=== PATIENT | female | born 1945 | race Caucasian/White ===

== ENCOUNTER 2019-02-25 05:48 | Emergency (ER) | payer BC, MEDICARE ==
--- NOTE | 2019-02-25 06:03 | ERPHSYRPT ---
- History of Present Illness Time Seen by Provider: 02/25/19 05:57 Source: patient Exam Limitations: other (Poor Historian) Physician History: Was cold yessterday; aches all over; nausea this morning. Has infection R calf from attack by neighbors radha last week. Is on antibiotic 2 X day - name unknown and not sure why she is taking it (maybe because of the leg wound - saw PCP) Allergies/Adverse Reactions: No Known Drug Allergies Allergy (Unverified 02/25/16 15:58) Home Medications: Cetirizine HCl [Allergy] 1 tab PO DAILY 02/25/16 [History] Hx Tetanus, Diphtheria Vaccination/Date Given: No Hx Influenza Vaccination/Date Given: Yes Hx Pneumococcal Vaccination/Date Given: No - Review of Systems Constitutional: Chills, Malaise Eyes: No Symptoms Ears, Nose, & Throat: No Symptoms Respiratory: No Symptoms Cardiac: No Symptoms Abdominal/Gastrointestinal: Nausea, No Vomiting, No Diarrhea All Other Systems: Reviewed and Negative - Past Medical History Pertinent Past Medical History: Yes Neurological History: No Pertinent History Cardiac History: No Pertinent History Respiratory History: No Pertinent History History: No Pertinent History Female Reproductive Disorders: No Pertinent History Other Medical History: SEASONAL ALLERGIES - Past Surgical History Past Surgical History: No - Social History Smoking Status: Never smoker Exposure to second hand smoke: No Drug Use: none Patient Lives Alone: No - Nursing Vital Signs Nursing Vital Signs: Initial Vital Signs Temperature 98.0 F 02/25/19 05:54 Pulse Rate 73 02/25/19 05:54 Respiratory Rate 18 02/25/19 05:54 Blood Pressure 141/63 02/25/19 05:54 Pain Scale Pain Intensity 5 - Physical Exam General Appearance: no apparent distress Eye Exam: PERRL/EOMI, eyes nml inspection Ears, Nose, Throat Exam: normal ENT inspection, pharynx normal Neck Exam: normal inspection, non-tender, supple Respiratory Exam: normal breath sounds, lungs clear, airway intact Cardiovascular Exam: regular rate/rhythm, normal heart sounds, normal peripheral pulses, No edema, No pulse deficit Gastrointestinal/Abdomen Exam: soft, normal bowel sounds, No tenderness, No distention, No mass, No guarding, No rebound Neurologic Exam: alert, oriented x 3, cooperative, artist consultant II-XII nml as tested, normal mood/affect, sensation nml, No motor deficits, No sensory deficit Skin Exam: normal color (Except for erythema Right medial calf secondary to superficial excoriations by rooster last week), warm, dry Lymphatic Exam: No adenopathy SpO2 Interpretation: normal O2 Delivery: Room Air - Course Nursing assessment & vital signs reviewed: Yes Ordered Tests: Active Orders 24 hr Category Date Time Status CBC W DIFF Stat Lab 02/25/19 06:02 Completed CMP Stat Lab 02/25/19 06:03 Completed Urinalysis with Microscopy Stat Lab 02/25/19 06:05 Ordered Lab/Rad Data: Laboratory Result Diagrams 02/25/19 06:02 02/25/19 06:03 Laboratory Results 02/25/19 02/25/19 Range/Units 06:03 06:02 WBC 5.1 (4.0-10.5) K/mm3 RBC 4.29 (4.1-5.4) M/mm3 Hgb 13.0 (12.0-16.0) gm/dl Hct 39.5 (35-47) % MCV 92.1 (78-100) fl MCH 30.3 (26-32) pg MCHC 32.9 (32-36) g/dl RDW 12.9 (11.5-14.0) % Plt Count 187 (150-450) K/mm3 MPV 8.8 (6-9.5) fl Gran % 79.9 H (36.0-66.0) % Eos # (Auto) 0.09 (0-0.5) Absolute Lymphs (auto) 0.55 L (1.0-4.6) Absolute Monos (auto) 0.36 (0.0-1.3) Lymphocytes % 10.8 L (24.0-44.0) % Monocytes % 7.1 (0.0-12.0) % Eosinophils % 1.8 (0.00-5.0) % Basophils % 0.4 (0.0-0.4) % Absolute Granulocytes 4.06 (1.4-6.9) Basophils # 0.02 (0-0.4) Sodium 138 (137-145) mmol/L Potassium 4.0 (3.5-5.1) mmol/L Chloride 108 H (98-107) mmol/L Carbon Dioxide 25 (22-30) mmol/L Anion Gap 9.4 (5-15) MEQ/L BUN 12 (7-17) mg/dL Creatinine 0.88 (0.52-1.04) mg/dL Estimated GFR > 60.0 ML/MIN Glucose 123 H (74-106) mg/dL Calcium 9.5 (8.4-10.2) mg/dL Total Bilirubin 0.40 (0.2-1.3) mg/dL AST 42 H (14-36) U/L ALT 30 (0-35) U/L Alkaline Phosphatase 108 (38-126) U/L Serum Total Protein 6.6 (6.3-8.2) g/dL Albumin 3.7 (3.5-5.0) g/dL - Departure Departure Disposition: Home Clinical Impression: Nausea, Cellulitis of leg, right Condition: Stable Critical Care Time: No Referrals: FELIX ALEXIS [Primary Care Provider] - Additional Instructions: Finish your antibiotic; call primary care provider. Make appointment to follow up with him with respect to your resolving cellulitis R calf. Use nausea medication (Zofran) if needed. Return to ER if running a fever of 101 or above or vomiting not relieved by the Zofran. Prescriptions: Ondansetron HCl [Zofran] 4 mg PO Q6H PRN PRN #10 tablet PRN Reason: Nausea
[2019-02-25 06:19] LABS: BASOPHIL % 0.4 % (0.0-0.4); Basophil (Absolute #) 0.02 (0-0.4); Eosinophil % 1.8 % (0.00-5.0); Eosinophil (Absolute #) 0.09 (0-0.5); Granulocyte Absolute (ANC) 4.06 (1.4-6.9); Granulocytes % 79.9 % (36.0-66.0); Hematocrit 39.5 % (35-47); Lymphocyte (Absolute #) 0.55 (1.0-4.6); Lymphocytes % 10.8 % (24.0-44.0); Mean Cell Volume 92.1 fl (78-100); Mean Corpuscular Hemoglobin 30.3 pg (26-32); Mean Corpuscular Hgb Concent. 32.9 g/dl (32-36); Mean Platelet Volume 8.8 fl (6-9.5); Monocyte (Absolute #) 0.36 (0.0-1.3); Monocytes % 7.1 % (0.0-12.0); Platelet Count 187 K/mm3 (150-450); Red Blood Count 4.29 M/mm3 (4.1-5.4); Red Cell Distribution Width 12.9 % (11.5-14.0); White Blood Count 5.1 K/mm3 (4.0-10.5)
[2019-02-25 06:30] LABS: ALBUMIN 3.7 g/dL (3.5-5.0); ALKALINE PHOSPHATASE 108 U/L (38-126); ANION GAP 9.4 MEQ/L (5-15); BLOOD UREA NITROGEN 12 mg/dL (7-17); CHLORIDE 108 mmol/L (98-107); Calcium 9.5 mg/dL (8.4-10.2); Carbon Dioxide 25 mmol/L (22-30); Creatinine 1 0.88 mg/dL (0.52-1.04); Glucose 123 mg/dL (74-106); SGOT/AST 42 U/L (14-36); SGPT/ALT 30 U/L (0-35); SODIUM 138 mmol/L (137-145); Total Protein 6.6 g/dL (6.3-8.2)
[2019-02-25 06:39] LABS: Appearance SLIGHTLY CLOUDY (CLEAR); Bilirubin NEGATIVE (NEGATIVE); Blood NEGATIVE Ery/ul (0-5); Glucose NEGATIVE (NEGATIVE); Ketones NEGATIVE (NEGATIVE); Leukocyte Esterase TRACE (NEGATIVE); Mucus SLIGHT /HPF (NEGATIVE); Nitrite NEGATIVE (NEGATIVE); Protein,Urine Dip NEGATIVE (Negative); Specific Gravity 1.025 (1.005-1.025); Urobilinogen NEGATIVE mg/dL (0-1)
[2019-02-25 06:40] VITALS: BP 121/59; PULSE 52; O2SAT 94
[2019-02-25] MEDS ORDERED: ZOFRAN ODT 4 MG PO PRN (07:00)
[2019-02-25] MEDS ORDERED: ZOFRAN ODT 4 MG ONE (07:02)
[2019-02-25] MEDS ORDERED: ZOFRAN ODT 4 MG PO ONE (07:04)
[2019-02-25 07:18] LABS: Slide Review 1 YES
== END 2019-02-25 07:12 | disposition home or self-care (01) ==
LOC: ED 05:48
DX: R11.0 Nausea (principal); L03.115 Cellulitis of right lower limb
CPT/HCPCS: 36000; 36415; 80053; 81001; 85025; 87651; 99284; Q0162

== ENCOUNTER 2020-10-06 06:34 | Day surgery (SDC) | payer MEDICARE ==
[~2020-10-06 06:34] MED LIST: Lactated Ringers 1,000 ML IV SCH
[2020-10-06] MEDS ORDERED: DIPRIVAN 200 MG/20 ML IV ONE (07:57)
[2020-10-06] MEDS ORDERED: Ketamine HCl 50 MG/ML ONE (07:58)
[2020-10-06] MEDS ORDERED: Versed 2 MG/2 ML Injection ONE (07:58)
[2020-10-06] MEDS ORDERED: ROBINUL ONE (08:32)
--- NOTE | 2020-10-06 09:23 | OP ---
SURGERY DATE: 10/06/2020 SURGERY TIME: 808 PREOPERATIVE DIAGNOSIS: 1. SCREENING EXAM. POSTOPERATIVE DIAGNOSIS: 1. POLYPS IN THE SIGMOID COLON. PROCEDURE: 1. Colonoscopy with cold forceps biopsy X 1 and hot snare polypectomy X 2. SURGEON: Dr. Cunningham. ANESTHESIA: MAC. Medications given by the Anesthesia Department. BRIEF HISTORY: The patient is a 74 y/o WF who presents now for her first screening colonoscopy. She was appraised of the risks of the procedure including the risk of perforation, phlebitis, untoward reaction to medication, bleeding, and missed lesions. The patient verbalized her understanding and desired to have the procedure performed. DESCRIPTION OF PROCEDURE: The patient was given the medications by the Anesthesia Department. She had continuous pulse oximetry, ECG monitoring, intermittent BP monitoring, and end tidal CO2 monitoring during the examination. It was noted the patient was bradycardic prior to the examination and has no history of heart disease and is not on beta-blockers, but the patient otherwise was stable having no symptoms. We felt the patient was safe to proceed with the colonoscopy. The patient was placed in the left lateral decubitus position. A digital rectal examination was performed and revealed normal anal sphincter tone and no masses were present. The flexible Olympus pediatric colonoscope was used to intubate the rectum. A view of the colon was developed sequentially to the cecum. Upon insertion and withdrawal, was noted a small polyp in the descending colon. This was biopsied X 2 using cold biopsy technique destroying the lesion. Upon further examination in the proximal colon, there was noted to be an approximately 1.5 cm polyp which was removed using the hot polypectomy snare and retrieved for pathologic evaluation. There was a 3rd even larger polyp in the rectosigmoid area measuring approximately 2.5 cm in size. This was also removed using the hot polypectomy snare and retrieved for pathologic evaluation. No other mucosal lesions being encountered, the scope was removed from the patient who tolerated the procedure well and was sent back to OP recovery in good condition. The prep was noted to be good.
[2020-10-06 09:39] VITALS: BP 189/79; PULSE 39; O2SAT 98
== END 2020-10-06 09:59 | disposition home or self-care (01) ==
LOC: SDC 06:34
PROVIDERS: ATTEND Family Medicine
DX: Z12.11 Encounter for screening for malignant neoplasm of colon (principal); D12.2 Benign neoplasm of ascending colon; D12.4 Benign neoplasm of descending colon; D12.5 Benign neoplasm of sigmoid colon
CPT/HCPCS: 93005; 99100; J2250; J2704

== ENCOUNTER 2024-06-18 16:50 | Emergency (ER) | payer MEDICARE ==
[2024-06-18 17:10] VITALS: RESP 18; TEMP 98.8
[2024-06-18] MEDS ORDERED: PROTONIX 40 MG IV IV ONE (17:28)
[2024-06-18] MEDS: PROTONIX 40 MG IV IV ONE (17:29)
[2024-06-18 17:54] LABS: Absolute Neutrophil Ct (ANC) 7.25 x10^3/uL (1.56-6.13); BASOPHIL % 0.6 % (0.1-1.2); Basophil (Absolute #) 0.06 x10^3/uL (0.01-0.08); Eosinophil (Absolute #) 0.19 x10^3/uL (0.04-0.36); Hematocrit 27.1 % (34.1-44.9); Hemoglobin 7.5 g/dL (11.2-15.7); IMMATURE GRAN # 0.03 x10^3u/L (0.001-0.031); IMMATURE GRAN % 0.3 % (0.001-0.429); Lymphocyte (Absolute #) 1.29 x10^3/uL (1.18-3.74); Lymphocytes % 13.6 % (19.3-51.7); Mean Cell Volume 72.3 fL (79.4-94.8); Mean Corpuscular Hgb Concent. 27.7 g/dL (32.2-35.5); Mean Platelet Volume 9.4 fL (9.4-12.3); Monocyte (Absolute #) 0.69 x10^3/uL (0.24-0.86); Monocytes % 7.3 % (4.7-12.5); Neutrophil % 76.2 % (34.0-71.1); Platelet Count 336 x10^3/uL (182-369); Red Blood Count 3.75 x10^6/uL (3.93-5.22); Red Cell Distribution Width 16.3 % (11.7-14.4); White Blood Count 9.5 x10^3/uL (3.98-10.04)
--- NOTE | 2024-06-18 18:03 | ERPHSYRPT ---
- History of Present Illness Time Seen by Provider: 06/18/24 17:00 Source: patient Exam Limitations: no limitations Patient Subjective Stated Complaint: Abnormal labs- HBG 7.7 Triage Nursing Assessment: Patient ambulated back to ED and transferred self to bed. Patient A+O X 3. Patient's skin pale, warm and dry. Patient states she went to see her PCP today due to increased weakness and being tired all the time. PCP ordered labs. Patient's HBG was 7.7 and was told to come to ED for eval. Patient denies pain or discomfort. Patient denies N/V and diarrhea. Physician History: 78 years old female with history of hypertension, congestive heart failure, atrial fibrillation on Eliquis, questionable history of GERD and sent in ER by PCP after her hemoglobin dropped from 12-7.7. Patient denies any dark stool, hematochezia, hematemesis or hemoptysis. Denies any abdominal pain nausea or vomiting. No diarrhea or constipation. No chest pain palpitations or shortness of breath but generalized weakness fatigue and tiredness going on for quite some time for which she decided to see her primary care today and blood work was done there. Allergies/Adverse Reactions: No Known Drug Allergies Allergy (Verified 06/18/24 17:00) Home Medications: Fexofenadine HCl [Mary Ellen] 1 tab PO DAILY 09/21/20 [History] Omeprazole 1 cap PO DAILY 09/21/20 [History] Simvastatin 20Mg [Zocor 20Mg] 1 tab PO DAILY 09/21/20 [History] hydroCHLOROthiazide [Hydrochlorothiazide] 1 cap PO DAILY 09/21/20 [History] Hx Tetanus, Diphtheria Vaccination/Date Given: No Hx Influenza Vaccination/Date Given: Yes Hx Pneumococcal Vaccination/Date Given: Yes Immunizations Up to Date: Yes Travel Risk - International Travel Have you traveled outside of the country in past 3 weeks: No - Emerging Infectious Disease Are you exhibiting symptoms associated with any current EIDs: No - Review of Systems Constitutional: Fatigue, Weakness Eyes: No Symptoms Ears, Nose, & Throat: No Symptoms Respiratory: No Symptoms Cardiac: No Symptoms Abdominal/Gastrointestinal: No Symptoms Genitourinary Symptoms: No Symptoms Musculoskeletal: Arthralgias Skin: No Symptoms Neurological: No Symptoms Endocrine: No Symptoms Immunological/Allergic: No Symptoms - Past Medical History Pertinent Past Medical History: Yes Neurological History: No Pertinent History ENT History: No Pertinent History Cardiac History: High Cholesterol Respiratory History: No Pertinent History Endocrine Medical History: No Pertinent History Musculoskeletal History: No Pertinent History GI Medical History: GERD History: No Pertinent History Psycho-Social History: No Pertinent History Female Reproductive Disorders: No Pertinent History Other Medical History: SEASONAL ALLERGIES - Past Surgical History Past Surgical History: Yes Neuro Surgical History: No Pertinent History Cardiac: No Pertinent History Respiratory: No Pertinent History Gastrointestinal: No Pertinent History Genitourinary: No Pertinent History Musculoskeletal: Orthopedic Surgery Female Surgical History: No Pertinent History Other Surgical History: Pt states " I had surgery years ago on my index finger, but I don't remember which one it was." - Social History Smoking Status: Never smoker Exposure to second hand smoke: Yes Drug Use: none Patient Lives Alone: No - Social Determinants of Health Will the patient participate in the screening: Yes Do you worry about a steady place to live?: No Do you have any problems with any of the following?: No known problems In the past 12 months,have you had to go without utilities?: No Transportation Issues: No Has anyone in your support network made you feel unsafe?: No Have you or anyone in your house had to go without enough: No - Nursing Vital Signs Nursing Vital Signs: Initial Vital Signs Temperature 98.8 F 06/18/24 17:00 Pulse Rate 81 06/18/24 17:00 Respiratory Rate 18 06/18/24 17:00 Blood Pressure 139/86 06/18/24 17:00 O2 Sat by Pulse Oximetry 98 06/18/24 17:00 Pain Scale Pain Intensity 0 - Physical Exam General Appearance: no apparent distress, alert Eye Exam: PERRL/EOMI, pale conjunctivae Ears, Nose, Throat Exam: normal ENT inspection Neck Exam: normal inspection, full range of motion Respiratory Exam: normal breath sounds, lungs clear Cardiovascular Exam: regular rate/rhythm, normal heart sounds Gastrointestinal/Abdomen Exam: soft, normal bowel sounds, No tenderness Extremity Exam: normal inspection, normal range of motion Neurologic Exam: alert, oriented x 3, cooperative Skin Exam: normal color SpO2 Interpretation: normal SpO2: 98 O2 Delivery: Room Air Ordered Tests: Active Orders 24 hr Category Date Time Status Jet Dyeing Machine Operator STAT Care 06/18/24 17:16 Active IV Insertion STAT Care 06/18/24 17:15 Active CBC W DIFF Stat Lab 06/18/24 17:44 Completed CMP Stat Lab 06/18/24 17:44 Completed PROTIME WITH INR Stat Lab 06/18/24 17:44 Completed PTT Stat Lab 06/18/24 17:44 Completed Medication Summary Discontinued Medications Generic Name Dose Route Start Last Admin Trade Name Inderq PRN Reason Stop Dose Admin Pantoprazole Sodium 40 mg 06/18/24 17:16 06/18/24 17:29 Pantoprazole 40 Mg Vial IV 06/18/24 17:17 40 mg STAT ONE Administration Pantoprazole Sodium Confirm 06/18/24 17:28 Pantoprazole 40 Mg Vial Administered 06/18/24 17:29 Dose 40 mg IV .[employer] ONE Lab/Rad Data: Laboratory Result Diagrams 06/18/24 17:44 06/18/24 17:44 Laboratory Results 06/18/24 06/18/24 06/18/24 Range/Units 17:44 17:44 17:44 WBC 9.5 (3.98-10.04) x10^3/uL RBC 3.75 L (3.93-5.22) x10^6/uL Hgb 7.5 L (11.2-15.7) g/dL Hct 27.1 L (34.1-44.9) % MCV 72.3 L (79.4-94.8) fL MCH 20.0 L (25.6-32.2) pg MCHC 27.7 L (32.2-35.5) g/dL RDW 16.3 H (11.7-14.4) % Plt Count 336 (182-369) x10^3/uL MPV 9.4 (9.4-12.3) fL Gran % 76.2 H (34.0-71.1) % Immature Gran % (Auto) 0.3 (0.001-0.429) % Nucleat RBC Rel Count 0.0 (0.00-0.2) % Eos # (Auto) 0.19 (0.04-0.36) x10^3/uL Immature Gran # (Auto) 0.03 (0.001-0.031) x10^3u/L Absolute Lymphs (auto) 1.29 (1.18-3.74) x10^3/uL Absolute Monos (auto) 0.69 (0.24-0.86) x10^3/uL Absolute Nucleated RBC 0.00 (0.00-0.012) x10^3u/L Lymphocytes % 13.6 L (19.3-51.7) % Monocytes % 7.3 (4.7-12.5) % Eosinophils % 2.0 (0.7-5.8) % Basophils % 0.6 (0.1-1.2) % Absolute Granulocytes 7.25 H (1.56-6.13) x10^3/uL Basophils # 0.06 (0.01-0.08) x10^3/uL PT 11.4 (9.4-12.5) SECONDS INR 1.05 (0.8-3.0) APTT 25.1 (25.1-36.5) SECONDS Sodium 141 (135-145) mmol/L Potassium 4.0 (3.5-5.1) mmol/L Chloride 107 (98-107) mmol/L Carbon Dioxide 28 (22-30) mmol/L Anion Gap 9.5 (5-15) MEQ/L BUN 15 (7-17) mg/dL Creatinine 0.84 (0.52-1.04) mg/dL Estimated GFR 72.0 ML/MIN Glucose 135 H (74-106) mg/dL Calcium 9.0 (8.4-10.2) mg/dL Total Bilirubin 0.20 (0.2-1.3) mg/dL AST 29 (14-36) U/L ALT 24 (0-35) U/L Alkaline Phosphatase 73 (38-126) U/L Serum Total Protein 6.7 (6.3-8.2) g/dL Albumin 3.9 (3.5-5.0) g/dL - Progress Progress Note: 06/18/24 18:49 78 years old is evaluated in the ER for generalized weakness with hemoglobin of 7.7 from a baseline of 12 without hematochezia/melena hemoptysis or hematemesis. She does take Eliquis. I have rechecked hemoglobin it is 7.5. I have given her Protonix. Discussed with patient about risk and benefits of transfusion and she agreed to go ahead with transfusions. Counseled pt/family regarding: diagnosis, need for follow-up Medical Desision Making - Independent Historian Additional History obtained from: Family - Diagnostic Testing Diagnostic test were ordered, analyzed, and reviewed by me: Yes - Risk of complications The pt has a high risk of morbidity or mortality based on: Decision regarding hospitilization or escalation of hosp level of care - Departure Clinical Impression: Symptomatic anemia Condition: Stable Critical Care Time: No Referrals: YOKO MARTINEZ, DIAPHRAGM BUILDER [Primary Care Provider] - Follow up/PCP as directed
[2024-06-18 18:08] LABS: ALBUMIN 3.9 g/dL (3.5-5.0); ANION GAP 9.5 MEQ/L (5-15); BILIRUBIN,TOTAL 0.2 mg/dL (0.2-1.3); Creatinine 1 0.84 mg/dL (0.52-1.04); Total Protein 6.7 g/dL (6.3-8.2)
[2024-06-18 18:09] LABS: INR 1.05 (0.8-3.0); PROTIME 11.4 SECONDS (9.4-12.5); PTT 25.1 SECONDS (25.1-36.5)
[2024-06-18 20:02] LABS: ABO TYPING A; Antibody Screen NEGATIVE (NEGATIVE); RH TYPING POSITIVE
[2024-06-18 20:10] LABS: CROSS MATCH (PRBC) COMPATIBLE (COMPATIBLE)
[2024-06-18] MEDS ORDERED: Sodium Chloride 0.9% 250 ML 250 ML IV ONE (20:13)
[2024-06-18] MEDS: Sodium Chloride 0.9% 250 ML 250 ML IV SCH (20:30)
[2024-06-18 23:07] VITALS: BP 150/65; PULSE 71; O2SAT 96
== END 2024-06-18 23:11 | disposition left against medical advice (07) ==
LOC: ED 16:50
DX: D64.9 Anemia, unspecified (principal); R53.1 Weakness; Z79.01 Long term (current) use of anticoagulants; Z79.899 Other long term (current) drug therapy
CPT/HCPCS: 36415; 80053; 85025; 85610; 85730; 86850; 86900; 86901; 86922; 93041; 96374; 99284; P9016; 36430